=== PATIENT | female | born 1970 | race Caucasian/White ===

== ENCOUNTER 2019-01-11 15:58 | Emergency (ER) | payer OTHER ==
[~2019-01-11] VITALS: Ht 152.4 cm; Wt 54.0 kg
[~2019-01-11 15:58] MED LIST: FLUO-387 PO; PAX10 PO; ZIPR80CA1 PO
[2019-01-11 16:14] VITALS: BP 106/69
--- NOTE | 2019-01-11 17:41 | NUR ---
PT TO BED 12 WITH STEADY GAIT
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
--- NOTE | 2019-01-11 18:00 | NUR ---
DR CHADWICK AT BEDSIDE
[2019-01-11] MEDS ORDERED: KETOROLAC 30 MG/ML VIAL IM ONE (18:20)
[2019-01-11 18:44] VITALS: BP 110/72
--- NOTE | 2019-01-11 18:44 | NUR ---
Patient discharged with v/s stable. Written and verbal after care instructions given and explained. Patient alert, oriented and verbalized understanding of instructions. Ambulatory with steady gait. All questions addressed prior to discharge. ID band removed. Patient advised to follow up with PMD. Rx of Valium 5mg and Ibuprofen 600mg given. Patient educated on indication of medication including possible reaction and side effects. Opportunity to ask questions provided and answered.
== END 2019-01-11 18:44 | disposition home or self-care (01) ==
LOC: MED 15:58
DX: M54.9 Dorsalgia, unspecified (principal); F15.90 Other stimulant use, unspecified, uncomplicated; Z79.899 Other long term (current) drug therapy
CPT/HCPCS: 96372; 99283; J1885

== ENCOUNTER 2022-04-19 23:04 | Emergency (ER) | payer OTHER ==
[~2022-04-19] VITALS: Ht 152.4 cm; Wt 54.4 kg
[2022-04-19 23:05] VITALS: BP 131/73
--- NOTE | 2022-04-19 23:08 | NUR ---
TO LOBBY A/W BED AMBULATORY
[2022-04-20] MEDS ORDERED: KETOROLAC 15 MG/ML VIAL IM ONE (00:45)
[2022-04-20] MEDS ORDERED: AMOX1TAB8 PO (00:53)
--- NOTE | 2022-04-20 01:01 | NUR ---
Patient discharged with v/s stable. Written and verbal after care instructions given and explained. Patient alert, oriented and verbalized understanding of instructions. Ambulatory with steady gait. All questions addressed prior to discharge. ID band removed. Patient advised to follow up with PMD. Rx of AMOXICILLIN/POTASSIUM CLAV given. Patient educated on indication of medication including possible reaction and side effects. Opportunity to ask questions provided and answered.
== END 2022-04-20 01:01 | disposition home or self-care (01) ==
LOC: MED 23:04
DX: K04.7 Periapical abscess without sinus (principal); F17.210 Nicotine dependence, cigarettes, uncomplicated; Z71.6 Tobacco abuse counseling; Z79.899 Other long term (current) drug therapy
CPT/HCPCS: 96372; 99283; J1885